=== PATIENT | male | born 1960 | race Caucasian/White ===

== ENCOUNTER → 2017-04-22 | Outpatient (CLI) | payer BC ==
[~2017-04-22] MED LIST: ALPRAZOLAM1 MG PO; CRESTOR PO; LISINOPRIL5 MG PO; METOPROLOL SUC100 MG PO; RANEXA500 MG PO; RAPAFLO8 MG PO
--- NOTE | ~2017-04-22 | CT134 ---
[facility] A Service of [facility] RADIOLOGY TEXT RESULTS PATIENT: HARRISON DELEON LOCATION: [facility] : 58 UNIT #: [id number] AGE: [address]: VIELKA LI SEX: M ORDER DR: [id number] [id number] [facility]. [place], [place] [address] [id number] O MR#: [id number] Acc #: [id number] NAME: HARRISON DELEON : 1960 SEX: M STUDY DATE/TIME: 04/22/2017 9:05 UNIT: [facility] ROOM: STUDY DESCRIPTION: CT Guide Attending Physician: Vielka Li A.P.R.N. Referring Physician: Vielka Li A.P.R.N. Ordering Physician: Physician Non-Staff Primary Care Physician: Anthony Murillo M.D. MEDICAL IMAGING REPORT This report is preliminary unless electronic signature is present EXAM CT guided lung biopsy INDICATION Mr. Deleon is a 56-year-old gentleman who had a PET scan performed April 12, 2017 at an outside facility. This showed extensive metastatic disease as well as a hypermetabolic mass within the right upper lobe. He has been referred for biopsy of the right upper lobe mass. PROCEDURE This CT examination was performed with one or more of the following radiation dose reduction techniques: automatic exposure control, adjustment of mA and/or kV according to patient size, and iterative reconstruction. The risks, benefits, and alternatives to the procedure were explained to the patient, and signed, informed consent was obtained. He was placed prone on the CT scanner gantry and a preliminary CT scan was performed through the region of interest. An appropriate site overlying the patient's right upper lobe mass was selected. The overlying skin was marked. Patient was prepped and draped in the usual sterile fashion. Time-out was performed as per protocol. Skin and subcutaneous tissues were anesthetized with buffered lidocaine. An anesthesia needle was left in place. Repeat CT scan confirmed appropriate position of the needle. At this point, I exchanged for a 17-gauge coaxial needle which was advanced into the patient's right upper lobe mass. Repeat CT scan confirmed appropriate position of the needle. At this point, a core sample was obtained using an 18-gauge BioPince biopsy gun. Subsequently, patient was noted to have some air coming from the coaxial needle which was then advanced further to seat it better within the lesion. Repeat CT scan did show a small pneumothorax around the biopsy site. At this point, I attempted to obtain another core sample but when I advanced the biopsy gun it appeared to misfire and I really did not obtain an adequate sample [facility] A Service of [facility] RADIOLOGY TEXT RESULTS PATIENT: HARRISON DELEON LOCATION: [facility] : 58 UNIT #: [id number] AGE: [address]: VIELKA LI SEX: M ORDER DR: with the second throw because of the patient's developing pneumothorax as well as sensation that the needle was catching within the coaxial needle. I opted to terminate the procedure. The needle was removed. Manual pressure was applied until hemostasis was obtained. A final CT scan did show a very small amount of air in the pleural space as really no large symptomatic pneumothorax was seen. Moderate sedation was provided to the patient. I supervised the IVR nurse who monitored the patient's vital signs for a total of 17 minutes of face to face time. IMPRESSION I was able to obtain an adequate core sample of the patient's right upper lobe mass using an 18-gauge BioPince biopsy gun. I was unable to obtain a second sample due to misfiring of the biopsy gun. Procedure was complicated by a very small asymptomatic pneumothorax. CT was used during this procedure and permanent images were saved. Dictated by... Camryn Hernandez M.D. THIS IS AN ELECTRONICALLY VERIFIED REPORT Camryn Hernandez M.D. at 04/23/2017 1:18 PM MALLORIE/patrick TD: 04/23/2017 12:33 JOB #: [id number] MEDICAL IMAGING REPORT Page 1 of 1 COPY
--- NOTE | ~2017-04-22 | CR71 ---
[facility] A Service of [facility] RADIOLOGY TEXT RESULTS PATIENT: HARRISON MADDOX LOCATION: [facility] : 58 UNIT #: [id number] AGE: [address]: VIELKA LI SEX: M ORDER DR: [id number] [facility] [address]. [place], [place] [address] [id number] O MR#: [id number] Acc #: [id number] NAME: HARRISON MADDOX : 1960 SEX: M STUDY DATE/TIME: 04/22/2017 09:39 UNIT: [facility] ROOM: STUDY DESCRIPTION: CR Chest Single View Attending Physician: Vielka Li A.P.R.N. Referring Physician: Vielka Li A.P.R.N. Ordering Physician: Camryn Hernandez M.D. Primary Care Physician: Anthony Murillo M.D. MEDICAL IMAGING REPORT This report is preliminary unless electronic signature is present EXAM Chest portable, 04/22/2017 09:39 hours HISTORY 56-year-old man post right lung biopsy today, shortness of air with activity. Evaluate for pneumothorax. COMPARISON CT biopsy images, 04/22/2017 FINDINGS Two upright portable views are performed. There is no pneumothorax. Vague density in the right medial suprahilar region is seen. IMPRESSION No postprocedure pneumothorax seen. Dictated by... Jazmín Armas M.D. THIS IS AN ELECTRONICALLY VERIFIED REPORT Jazmín Armas M.D. at 04/22/2017 2:29 PM Paulo TD: 04/22/2017 12:08 JOB #: [id number] MEDICAL IMAGING REPORT Page 1 of 1 COPY
--- NOTE | ~2017-04-22 | CR71 ---
[facility] A Service of [facility] & [facility] RADIOLOGY TEXT RESULTS PATIENT: HARRISON MADDOX LOCATION: [facility] : 58 UNIT #: [id number] AGE: [address]: VIELKA LI SEX: M ORDER DR: [id number] [facility] [address] [place], [place] [address] [id number] O MR#: [id number] Acc #: [id number] NAME: HARRISON MADDOX : 1960 SEX: M STUDY DATE/TIME: 04/22/2017 11:26 UNIT: [facility] ROOM: STUDY DESCRIPTION: CR Chest Single View Attending Physician: Vielka Li A.P.R.N. Referring Physician: Vielka Li A.P.R.N. Ordering Physician: Camryn Hernandez M.D. Primary Care Physician: Anthony Murillo M.D. MEDICAL IMAGING REPORT This report is preliminary unless electronic signature is present EXAM Portable chest radiograph INDICATION Evaluate for pneumothorax following right lung biopsy today. FINDINGS There is no evidence of pneumothorax following right lung biopsy. Patient is again noted to have a mass within the right upper lobe adjacent to the right paratracheal stripe, again no pneumothorax is seen. There is no pleural effusion. Background emphysematous changes are seen and the heart size is within normal limits. IMPRESSION No pneumothorax identified post right lung biopsy. Dictated by... Camryn Hernandez M.D. THIS IS AN ELECTRONICALLY VERIFIED REPORT Camryn Hernandez M.D. at 04/23/2017 1:20 PM MALLORIE/aki TD: 04/22/2017 12:30 JOB #: [id number] MEDICAL IMAGING REPORT Page 1 of 1 COPY
[2017-04-22 07:34] LABS: HEMATOCRIT 28.1 % (38.0-50.0); MEAN CELL VOLUME 86.8 FL (83-96); MEAN CORPUSCULAR HEMOGLOBIN 27.8 PG (28-34); MEAN CORPUSCULAR HGB CONC 32.1 g/dL (30-36); MEAN PLATELET VOLUME 6.2 FL (6.5-11.5); RED BLOOD COUNT 3.23 X10e (3.90-5.60); RED CELL DISTRIBUTION WIDTH 13.7 % (11.0-15.5); WHITE BLOOD COUNT 6.9 X10e3 (4.0-10.5)
[2017-04-22 07:53] LABS: INR 0.9; PARTIAL THROMBOPLASTIN TIME 25.8 SECONDS (23.5-31.3); PROTHROMBIN TIME (PATIENT) 9.7 SECONDS (9.6-11.5)
== END | disposition home or self-care (01) ==
LOC: CIVR 07:08
PROVIDERS: Nurse Practitioner
DX: C34.11 Malignant neoplasm of upper lobe, right bronchus or lung (principal); J95.811 Postprocedural pneumothorax; C67.5 Malignant neoplasm of bladder neck; N28.1 Cyst of kidney, acquired; D18.03 Hemangioma of intra-abdominal structures; I10 Essential (primary) hypertension; Z87.440 Personal history of urinary (tract) infections
CPT/HCPCS: 36415; 71010; 77012; 85027; 85610; 85730; 88305; 88342; J2250; J3010